=== PATIENT | female | born 1965 | race Caucasian/White ===

== ENCOUNTER → 2023-08-10 | Outpatient (CLI) | payer OTHER ==
--- NOTE | 2023-08-10 16:24 | US ---
EXAMINATION TYPE: US thyroid st tissue head/neck DATE OF EXAM: 08/10/2023 COMPARISON: NONE CLINICAL INDICATION: Female, 58 years old with history of R94.6 ABNORMAL THYROID LABS; HYPOTHYROID GLAND SIZE: Right Lobe: 1.0x4.3x1.1 cm Overall Parenchyma: heterogeneous Left Lobe: 2.7x0.9x0.8 cm Overall Parenchyma: heterogeneous Isthmus Thickness: 0.2 cm NODULES RIGHT: # of nodules measured on right: 0 LEFT: # of nodules measured on left: 0 ISTHMUS: # of nodules measured in the isthmus: 0 Bilateral neck scanned, no evidence of lymphadenopathy. The thyroid gland is diffusely heterogenous and small in size without discrete nodule. IMPRESSION: Diffusely heterogenous small thyroid gland without discrete nodule.
--- NOTE | 2023-08-11 08:45 | MM ---
Reason for Exam: Screening (asymptomatic). Last mammogram was performed 4 year(s) and 4 month(s) ago. Patient History: Menarche at age 17. First Full-Term at age 30. Postmenopausal. Patient has history of breast feeding. Patient used Estrogen and Progesterone for 1 year. 06/17/2022, Bilateral Implants. Risk Values: Maria C 5 year model risk: 1.3%. NCI Lifetime model risk: 8.0%. Prior Study Comparison: 07/12/2013 Bilateral MG screening mammo w CAD - 2, Unknown. 04/04/2019 Bilateral MG screening mammo w CAD - 2, Unknown. Tissue Density: The breasts are extremely dense, which lowers the sensitivity of mammography. Findings: Analyzed By CAD. There is no suspicious group of microcalcifications or new suspicious mass in either breast. Benign appearing calcifications. Bilateral breast implant surgery. Overall Assessment: Benign, BI-RAD 2 Management: Screening Mammogram of both breasts in 1 year. . Patient should continue monthly self-breast exams. A clinical breast exam by your physician is recommended on an annual basis. This exam should not preclude additional follow-up of suspicious palpable abnormalities. Note on Maria C scores and lifetime risk: 1. A Maria C score greater than 3% is considered moderate risk. If this is the case, consider specialist referral to assess eligibility for a risk reducing agent. 2. If overall lifetime risk for the development of breast cancer is 20% or higher, the patient may qualify for future screening with alternating mammogram and breast MRI. Electronically signed and approved by: Robert Fofana M.D. [facility]
== END | disposition home or self-care (01) ==
LOC: RADMAMWWP 08:39
PROVIDERS: ATTEND Obstetrics & Gynecology
DX: Z12.31 Encounter for screening mammogram for malignant neoplasm of breast (principal); E07.89 Other specified disorders of thyroid; E03.9 Hypothyroidism, unspecified; R94.6 Abnormal results of thyroid function studies; Z78.0 Asymptomatic menopausal state; Z98.82 Breast implant status
CPT/HCPCS: 76536; 77063; 77067